=== PATIENT | male | born 1955 | race Caucasian/White ===

== ENCOUNTER 2021-05-21 09:09 | Outpatient (CLI) | payer MEDICARE, OTHER, SELFPAY ==
--- NOTE | ~2021-05-21 | US_ITS ---
EXAMINATION: US venous doppler LE EXAM DATE: 05/21/2021 09:44 INDICATION: M79.662 - Pain in left lower leg TECHNIQUE: Multiple grayscale, color flow and Doppler images of the lower extremity deep venous syste ms bilaterally were obtained and reviewed. Comparison is made to prior examination from 07/12/2019. FINDINGS: Right side: The right common femoral, femoral and profunda veins demonstrate normal color flow, respi ratory variation, augmentation and compressibility. Compressibility, color flow confirmed within the right popliteal, posterior tibial, peroneal, and greater saphenous veins. Left side: The left common femoral, femoral and profunda veins demonstrate normal color flow, respira tory variation, augmentation and compressibility. Compressibility, color flow confirmed within the l eft popliteal, posterior tibial, peroneal, and greater saphenous veins. Some images were annotated left campo bruise demonstrating an anechoic subcutaneous region which could be small hematoma seroma. IMPRESSION: 1. No lower extremity deep venous thrombosis bilaterally. 2. Small anechoic fluid region probably hematoma seroma given history provided. Reviewed, dictated and finalized at location A. IMPRESSION: 1. No lower extremity deep venous thrombosis bilaterally. 2. Small anechoic fluid region probably hematoma seroma given history provided .
== END 2021-05-21 09:10 | disposition home or self-care (01) ==
LOC: ANHIMG 09:16
PROVIDERS: PCP Family Medicine; Visit Provider Physician Assistant Medical
DX: M79.662 Pain in left lower leg (principal); M79.89 Other specified soft tissue disorders
CPT/HCPCS: 93970

== ENCOUNTER 2021-10-18 12:25 | Outpatient (CLI) | payer MEDICARE, OTHER, SELFPAY ==
--- NOTE | ~2021-10-18 | US_ITS ---
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 TECHNIQUE: Grayscale ultrasound images without and with compression and Doppler ultrasound images of the bilateral lower extremity veins were obtained. COMPARISON: Ultrasound 05/21/2021 FINDINGS: The visualized portions of right common femoral vein, profunda (deep) femoral vein, femoral vein, pop liteal vein, peroneal veins, posterior tibial veins, and greater saphenous vein outflow are patent. The visualized portions of left common femoral vein, profunda femoral vein, femoral vein, popliteal v ein, peroneal veins, posterior tibial veins, and greater saphenous vein outflow are patent. IMPRESSION: 1. No deep venous thrombosis. Reviewed, dictated and finalized at location A. [employer] OPERATOR
== END 2021-10-18 12:26 | disposition home or self-care (01) ==
PROVIDERS: PCP Family Medicine; Visit Provider Nurse Practitioner Family
DX: I82.722 Chronic embolism and thrombosis of deep veins of left upper extremity (principal)
CPT/HCPCS: 93970

== ENCOUNTER → 2022-06-03 11:28 | Outpatient (CLI) | payer MEDICARE, SELFPAY ==
--- NOTE | ~2022-06-03 | XR_ITS ---
XR hand RT 2V DATE: 06/03/2022 11:54 INDICATION: Joint pain TECHNIQUE: AP and lateral views of right hand COMPARISON: None FINDINGS: There is severe joint space narrowing and some spurring of the first carpometacarpal joint. There is osteoarthritic change of mild degree at the metacarpophalangeal joints and to moderate degr ee at the interphalangeal joints. No fracture, dislocation, periosteal reaction or bone destruction. IMPRESSION: Polyarticular osteoarthritis Reviewed, dictated and finalized at location A.
== END ==
PROVIDERS: PCP Physician Assistant Medical; Visit Provider Physician Assistant Medical
DX: M25.549 Pain in joints of unspecified hand (principal); M19.041 Primary osteoarthritis, right hand
CPT/HCPCS: 73120

== ENCOUNTER 2022-12-06 08:47 | Outpatient (CLI) | payer MEDICARE, OTHER, SELFPAY ==
--- NOTE | 2022-12-06 11:00 | NEURO_ITS ---
Impression: Patient reports a history of numbness in left upper extremity. # Evidence of mild left Carpal Tunnel Syndrome. # Normal needle/EMG exam. # Clinical correlation recommended. Nerve Conduction Studies Anti Sensory Summary Table Stim Site NR Peak (ms) P-T Amp (?V) Site1 Site2 Delta-P (ms) Dist (cm) Mark (m/s) Left Median Anti Sensory (2-3nd Digit) Wrist 4.1 23.5 Wrist 2-3nd Digit 4.1 14.0 34 Wrist 4.3 19.2 Wrist 2-3nd Digit 4.1 14.0 34 Left Radial Anti Sensory (Base 1st Digit) Wrist 1.7 42.6 Wrist Base 1st Digit 1.7 0.0 Left Ulnar Anti Sensory (5th Digit) Wrist 2.7 13.0 Wrist 5th Digit 2.7 14.0 52 Motor Summary Table Stim Site NR Onset (ms) O-P Amp (mV) Site1 Site2 Delta-0 (ms) Dist (cm) Mark (m/s) Left Median Motor (Abd Poll Brev) Wrist 3.7 4.4 Elbow Wrist 4.6 26.0 57 Elbow 8.3 1.0 Left Ulnar Motor (Abd Dig Minimi) Wrist 2.5 5.0 A Elbow Wrist 5.7 32.0 56 A Elbow 8.2 4.2 B Elbow Wrist 4.2 23.0 55 B Elbow 6.7 4.1 F Wave Studies NR F-Lat (ms) L-R F-Lat (ms) Left Median (Mrkrs) (Abd Poll Brev) 26.63 Left Ulnar (Mrkrs) (Abd Dig Min) 27.63 EMG Side Muscle Nerve Root Ins Act Fibs Amp Dur Recrt Comment Left 1stDorInt Ulnar C8-T1 Nml Nml Nml Nml Nml Left Ext Indicis Radial (Post Int) C7-8 Nml Nml Nml Nml Nml Left Ext Digitorum Radial (Post Int) C7-8 Nml Nml Nml Nml Nml Left BrachioRad Radial C5-6 Nml Nml Nml Nml Nml Left PronatorTeres Median C6-7 Nml Nml Nml Nml Nml Left Abd Poll Brev Median C8-T1 Nml Nml Nml Nml Nml MTDD
== END 2022-12-06 08:48 | disposition home or self-care (01) ==
LOC: ANHNEURO 08:49
PROVIDERS: PCP Family Medicine; Visit Provider Plastic Surgery
DX: G56.02 Carpal tunnel syndrome, left upper limb (principal)
CPT/HCPCS: 95886; 95909

== ENCOUNTER → 2023-04-25 13:22 | Outpatient (REF) | payer MEDICARE, OTHER, SELFPAY | LOC: ANHLAB 13:22 | PROVIDERS: PCP Family Medicine; Visit Provider Plastic Surgery | DX: L72.0 Epidermal cyst (principal) | CPT/HCPCS: 88304 ==

== ENCOUNTER 2023-04-28 02:38 | Emergency (ER) | payer MEDICARE, OTHER, SELFPAY ==
[2023-04-28 02:40] VITALS: BP 156/88; PULSE 70; RESP 15; TEMP 36.6; O2SAT 100
--- NOTE | 2023-04-28 03:47 | ED.GENADULT ---
HPI - General Adult General Chief complaint: Skin/Abscess/Foreign Body Stated complaint: cyst bleeding Time Seen by Provider: 04/28/23 02:49 History of Present Illness HPI narrative: Patient presents to the emergency department with oozing from a laceration on the back of his neck. He had a cyst removed at the plastic surgeons office 2 days ago. He states it has been bleeding intermittently since. Last INR drawn was 3.1 and he has not taken any since. Mild oozing from laceration present. He denies all other symptoms. Related Data Home Medications Medication Instructions Recorded Confirmed aspirin 81 mg tablet,delayed 81 mg PO DAILY 06/21/19 04/25/23 release (Adult Aspirin Regimen) Allergies Allergy/AdvReac Type Severity Reaction Status Date / Time Penicillins Allergy Intermediate Rash Verified 04/28/23 02:45 Review of Systems Review of Systems: Review of systems negative except for what is documented in the [facility] Past Medical History Medical History Cellulitis, leg (~06/19/19) Surgical History Surgical History H/O blepharoplasty Family History Family History Mother Pancreatic cancer Tobacco abuse Father Heart disease Tobacco abuse Sibling , cancer Tobacco abuse Other Family history of malignant neoplasm Family history of pancreatic cancer Social History Social History (Updated 04/25/23 @ 13:04 by Toshia Wood CMA) Smoking status: Never smoker Second hand tobacco smoke exposure: Yes Alcohol intake: never Substance use: never Substance use type: does not use Lack of Transportation: No Lack of Food: Never True Current Housing: I Have Housing Concerned About Future Housing: No Difficulty Paying Gas/Electric Bills: No Difficulty Paying for Meds: No Currently Unemployed: No Education: Associate Degree Difficulty w/ Childcare or Family Care: No Living arrangements: with family 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 HEAD: Normocephalic, atraumatic. ENT: Nares clear, no rhinorrhea or epistaxis. Mucous membranes moist. NECK: Normal ROM CHEST: No respiratory distress. EXTREMITIES: Normal range of motion. SKIN: Warm, dry, no rash. Sutured laceration 2.5 cm long right posterior neck. Continued oozing of blood NEURO: No focal deficits. Alert and oriented x3. PSYCH: Normal mood and affect. Course Course Emergency Course: Skin adhesive placed on the wound. Skin adhesive seemed dry so gauze used to place pressure. However gauze stuck to adhesive. Cut additional gauze off however any further removal will likely tear out the stitches. Bleeding is stopped. Shared decision making with patient his and RN regarding plan to leave remaining gauze. Family member agrees to rub petroleum based products into gauze a couple times of day. Told them to call me during my next few shifts if needed. Vital Signs Vital signs: Vital Signs Temperature 36.6 C 04/28/23 02:40 Pulse Rate 70 04/28/23 02:40 Respiratory Rate 15 04/28/23 02:40 Blood Pressure 156/88 H 04/28/23 02:40 Pulse Oximetry 100 04/28/23 02:40 Oxygen Delivery Room Air 04/28/23 02:40 Temperature 36.6 C 04/28/23 02:40 Pulse Rate 70 04/28/23 02:40 Respiratory Rate 15 04/28/23 02:40 Blood Pressure 156/88 H 04/28/23 02:40 Pulse Oximetry 100 04/28/23 02:40 Oxygen Delivery Room Air 04/28/23 02:40 Medical Decision Making Vital Signs Vital Signs: Vital Signs Temperature 36.6 C 04/28/23 02:40 Pulse Rate 70 04/28/23 02:40 Res
== END 2023-04-28 03:59 | disposition home or self-care (01) ==
PROVIDERS: Emergency Provider Emergency Medicine; PCP Family Medicine
DX: L76.22 Postprocedural hemorrhage of skin and subcutaneous tissue following other procedure (principal); Z79.01 Long term (current) use of anticoagulants; Z79.82 Long term (current) use of aspirin
CPT/HCPCS: 99282

== ENCOUNTER 2024-06-03 09:41 | Outpatient (RCR) | payer MEDICARE, SELFPAY ==
[2024-06-03 10:00] VITALS: BMI 32.8
== END 2024-08-23 13:19 | disposition home or self-care (01) ==
LOC: ANHWOC 09:41
PROVIDERS: PCP Physician Assistant Medical
DX: S80.11XA Contusion of right lower leg, initial encounter (principal)
CPT/HCPCS: 99213; G0463